=== PATIENT | male | born 1990 | race Caucasian/White ===

== ENCOUNTER 2018-12-07 10:36 | Emergency (ER) | payer OTHER ==
[~2018-12-07] VITALS: Ht 185.4 cm; Wt 100.0 kg
[2018-12-07] MEDS ORDERED: ACETAMINOPHEN 325MG TABLET PO STA (11:54)
[2018-12-07 13:23] LABS: CHLORIDE 103 mEq/L (98-107)
[2018-12-07 13:30] LABS: ETHANOL BLOOD < 10 mg/dL
[2018-12-07 13:37] LABS: BASOPHILS % 0.3 % (0.0-2.0); EOSINOPHILS % 0.5 % (0.0-5.0); HEMATOCRIT. 45.1 % (42.0-52.0); HEMOGLOBIN. 15.1 g/dL (14.0-18.0); LYMPHOCYTES % 22.6 % (20.0-50.0); MEAN CORPUSCULAR HEMOGLOBIN 30.1 pg (28.0-32.0); MEAN CORPUSCULAR VOLUME 90.2 fL (80.0-94.0); MEAN PLATELET VOLUME 8.7 fl (7.4-10.4); MONOCYTES % 5.5 % (2.0-8.0); NEUTROPHILS % 71.1 % (40.0-76.0); PLATELET 331 x1000/uL (130-400); RED CELL DISTRIBUTION WIDTH 14.5 % (11.6-14.6)
[2018-12-07 14:52] LABS: CLARITY URINE CLEAR (CLEAR); KETONES URINE NEGATIVE (NEGATIVE); LEUKOCYTE ESTERASE URINE NEGATIVE (NEGATIVE); NITRITE URINE NEGATIVE (NEGATIVE); OCCULT BLOOD URINE NEGATIVE (NEGATIVE); PH URINE 6.5 (4.5-8.0); PROTEIN URINE NEGATIVE (NEGATIVE); SPECIFIC GRAVITY URINE 1.006 (1.005-1.030); UROBILINOGEN URINE 0.2 E.U./dL (0.2-1.0)
[2018-12-07 14:53] LABS: COLOR URINE PALE YELLOW (YELLOW)
[2018-12-07 15:03] LABS: *BENZODIAZEPINES SCREEN URINE NEGATIVE (NEGATIVE); *COCAINE SCREEN URINE NEGATIVE (NEGATIVE); METHADONE URINE SCREEN NEGATIVE (NEGATIVE)
[2018-12-07 15:04] LABS: *AMPHETAMINES SCREEN URINE NEGATIVE (NEGATIVE); *BARBITURATES SCREEN URINE NEGATIVE (NEGATIVE); CANNABINOID URINE SCREEN PRESUMTIVE POSITIVE (NEGATIVE); OPIATES URINE SCREEN NEGATIVE (NEGATIVE); PHENCYCLIDINE URINE SCREEN NEGATIVE (NEGATIVE)
[2018-12-07] MEDS ORDERED: LEVETIRACETAM 250MG TABLET PO ONE (23:15)
[2018-12-08] MEDS ORDERED: QUETIAPINE FUMARATE 100MG TABLET PO STA (01:04)
[2018-12-08 13:07] VITALS: BP 140/90
== END 2018-12-08 13:15 | disposition home or self-care (01) ==
LOC: ER 11:51
DX: S11.91XA Laceration without foreign body of unspecified part of neck, initial encounter (principal); R45.851 Suicidal ideations; F12.10 Cannabis abuse, uncomplicated; R56.9 Unspecified convulsions; M54.2 Cervicalgia; X78.8XXA Intentional self-harm by other sharp object, initial encounter; Y93.89 Activity, other specified; Y92.89 Other specified places as the place of occurrence of the external cause; Y99.8 Other external cause status
CPT/HCPCS: 36415; 80305; 99284

== ENCOUNTER 2019-01-09 18:31 | Emergency (ER) | payer OTHER ==
[~2019-01-09] VITALS: Ht 172.7 cm; Wt 91.0 kg
[2019-01-09] MEDS ORDERED: HALOPERIDOL LACTATE 5MG/ML VIAL IM STA (20:26)
[2019-01-09] MEDS ORDERED: LORAZEPAM 2MG/ML CPJ IM ONE (20:30)
[2019-01-09] MEDS ORDERED: LORAZEPAM 2MG/ML CPJ ONE (20:34)
[2019-01-09] MEDS ORDERED: HALOPERIDOL LACTATE 5MG/ML VIAL IM ONE (20:35)
[2019-01-09 23:35] LABS: CLARITY URINE CLEAR (CLEAR); COLOR URINE YELLOW (YELLOW); KETONES URINE NEGATIVE (NEGATIVE); LEUKOCYTE ESTERASE URINE NEGATIVE (NEGATIVE); NITRITE URINE NEGATIVE (NEGATIVE); OCCULT BLOOD URINE NEGATIVE (NEGATIVE); PROTEIN URINE NEGATIVE (NEGATIVE); SPECIFIC GRAVITY URINE 1.006 (1.005-1.030); UROBILINOGEN URINE 0.2 E.U./dL (0.2-1.0)
[2019-01-10 00:36] LABS: BASOPHILS % 0.7 % (0.0-2.0); HEMATOCRIT. 49.4 % (42.0-52.0); HEMOGLOBIN. 16.7 g/dL (14.0-18.0); LYMPHOCYTES % 33.7 % (20.0-50.0); MEAN CORPUSCULAR HEMOGLOBIN 30.7 pg (28.0-32.0); MEAN CORPUSCULAR VOLUME 90.6 fL (80.0-94.0); MEAN PLATELET VOLUME 8.6 fl (7.4-10.4); MONOCYTES % 8.3 % (2.0-8.0); NEUTROPHILS % 56.3 % (40.0-76.0); PLATELET 287 x1000/uL (130-400); RED BLOOD CELL COUNT 5.45 mill/uL (4.7-6.1); RED CELL DISTRIBUTION WIDTH 14.5 % (11.6-14.6)
[2019-01-10 00:44] LABS: CHLORIDE 107 mEq/L (98-107)
[2019-01-10 00:45] LABS: *AMPHETAMINES SCREEN URINE NEGATIVE (NEGATIVE); *BARBITURATES SCREEN URINE NEGATIVE (NEGATIVE); *BENZODIAZEPINES SCREEN URINE PRESUMTIVE POSITIVE (NEGATIVE); *COCAINE SCREEN URINE NEGATIVE (NEGATIVE); CANNABINOID URINE SCREEN PRESUMTIVE POSITIVE (NEGATIVE); METHADONE URINE SCREEN NEGATIVE (NEGATIVE); OPIATES URINE SCREEN NEGATIVE (NEGATIVE)
[2019-01-10 00:47] LABS: PHENCYCLIDINE URINE SCREEN NEGATIVE (NEGATIVE)
[2019-01-10 00:53] LABS: ETHANOL BLOOD 139 mg/dL
[2019-01-10 14:03] VITALS: BP 126/73
== END 2019-01-10 14:07 | disposition home or self-care (01) ==
LOC: ER 19:24
DX: T51.0X1A Toxic effect of ethanol, accidental (unintentional), initial encounter (principal); R45.1 Restlessness and agitation; F23 Brief psychotic disorder; E05.00 Thyrotoxicosis with diffuse goiter without thyrotoxic crisis or storm; F31.9 Bipolar disorder, unspecified; Z98.890 Other specified postprocedural states; Y92.89 Other specified places as the place of occurrence of the external cause
CPT/HCPCS: 36415; 80053; 80305; 80307; 80320; 80329; 81003; 85025; 96372; 99284; J1630; J2060; Z7610; G0480

== ENCOUNTER 2022-09-18 05:34 | Emergency (ER) | payer OTHER | END 2022-09-18 05:45 | disposition left against medical advice (07) | LOC: ER 05:34 | DX: Z53.21 Procedure and treatment not carried out due to patient leaving prior to being seen by health care provider (principal) ==